=== PATIENT | female | born 1980 | race Caucasian/White ===

== ENCOUNTER → 2020-03-14 12:52 | Outpatient (CLI) | payer OTHER, SELFPAY ==
[2020-03-14 14:34] LABS: Coronavirus 19 IgG Antibody Negative (Negative); Coronavirus 19 IgM Antibody Negative (Negative)
== END ==
PROVIDERS: Visit Provider Internal Medicine Gastroenterology
DX: Z01.812 Encounter for preprocedural laboratory examination (principal); Z20.822 Contact with and (suspected) exposure to COVID-19; Z12.11 Encounter for screening for malignant neoplasm of colon
CPT/HCPCS: 36415; 86328

== ENCOUNTER 2020-03-15 07:07 | Day surgery (SDC) | payer OTHER, SELFPAY ==
[2020-03-14 09:11] VITALS: BMI 37.1
[2020-03-15] VITALS (7 sets, daily range): BP systolic 108–134; BP diastolic 64–88; PULSE 80–110; RESP 16–20; TEMP 36.6–37.2; O2SAT 94–99
[2020-03-15 08:31] LABS: HCG Qualitative, Serum Negative (Negative)
--- NOTE | 2020-03-15 08:43 | P.PCN_ITS ---
[facility] Procedure Note Procedure Note:: Colonoscopy Procedure Report: Colonoscopy with cold snare polypectomy Endoscopist: Jose A Veronica II, MD Referring physician: None Date of Procedure: March 15, 2020 Equipment: Olympus 180 variable stiffness pediatric colonoscope Sedation: MAC sedation Indication: Mrs. Rudd is a 39-year-old female with a change in bowel habits with increased bowel frequency and a clear serous discharge in her underpants and has to change her underwear several times a day. The patient reports no bowel urgency or fecal incontinence. She does have urinary frequency. She does have chronic lower back pain with 2 lower back surgeries and a spinal stimulator. The patient does report some bloating. She notes occasional spotting of blood and some mucus with her bowel movements. She has had a lot of stress and has gained weight. She was placed on Rexulti which made her gain more weight and exacerbated her GERD. She has had tachycardia. She does report some straining with bowel movements about once a week. She reports no family history of colon cancer. Procedure: Prior to the procedure, a history and physical exam was performed, and patient's medications and allergies were reviewed. The risks, benefits and alternatives of the sedation and procedure were discussed with the patient. All questions were answered and informed consent was obtained. The patient was brought to the procedure room. Patient identification and proposed procedure were verified by the physician and the nurse. The patient was placed in a left lateral decubitus position and the scope was passed under direct vision. Throughout the procedure, the patient's blood pressure, pulse, and oxygen saturations were monitored continuously. The colonoscopy was accomplished without difficulty. The patient tolerated the procedure well. Findings: On digital rectal examination there was normal rectal tone. There were no external hemorrhoids. The colonoscope was introduced through the anal canal to the rectum and advanced to the cecum. The ileocecal valve and appendiceal orifice were identified. The scope was advanced a short distance into the ileum which appeared grossly normal. The scope was then withdrawn into the colon. The cecum, ascending and transverse colon were grossly normal. There were 2 diminutive polyps (descending x1 (2 to 3 mm) and sigmoid x1 (3 to 4 mm)) which were both removed via cold snare polypectomy. The rectum was normal. There were no other mucosal abnormalities identified. Upon retroflexion within the rectum there were grade 1-2 internal hemorrhoids.The preparation was excellent throughout with [place] Preparation Score of 9. The cecal time was 12 minutes. Impression: 1. Diminutive colonic polyps x2 2. Grade 1-2 internal hemorrhoids Plan: I will follow up the polyp histology and recommend repeat surveillance colonoscopy in 5 years if either of the polyps are adenomatous. 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 Both the bladder and rectum are innervated by the sacral nerves and are responsible for awareness when the bladder and bowel are full as well as bowel and bladder control. I do feel that this is responsible for her leakage. I am going to recommend bulk fiber. I would like for her to meet with a urologist and also make sure the nerve stimulation device (? InterStim) is functioning.
--- NOTE | 2020-03-15 10:51 | HMH.ANESCL ---
[facility] Anesthesia Checklist - Patient Identification Patient Identification: Arm Band - Structural Data Admitted From: Home Planned Operative Procedure/s: colon Consent for Planned Operative Procedure(s) Verified: Yes Verified Documents: Surgical Consent - Anesthesia Plan Anesthesia Risk discussed: Yes Anesthesia Plan: Verified ASA Class: II Anesthesia Type: General [facility] History Medical History: Reports:: Palpitations Denies:: Cancer, Diabetes Mellitus Type 1, Diabetes Mellitus Type 2, Internal Pacemaker, MRSA, Seizures *Have you ever received a pneumonia vaccine?: No *Have you received a flu vaccine this season?: Yes Anesthesia experience/problems:: none Other Surgeries: No: Pacemaker Amputation: No Fractures: No - *Social History Last grade of school completed: Some college Smoking Status: Never smoker Alcohol Intake: current Alcohol Intake Frequency:: a few times a week Substance Use Type: denies use *Occupational Status:: employed Housing: house Household Members: spouse *Travel in the last 8 weeks: None Family Hx:: Cancer
== END 2020-03-15 09:55 | disposition home or self-care (01) ==
LOC: OUTP 07:12
PROVIDERS: Visit Provider Internal Medicine Gastroenterology
PROC: 0DJD8ZZ Inspection of Lower Intestinal Tract, Via Natural or Artificial Opening Endoscopic (ICD-10-PCS; CPT 45378; principal; 2020-03-15 08:30)
DX: K63.5 Polyp of colon (principal); K64.0 First degree hemorrhoids; R00.0 Tachycardia, unspecified; K21.9 Gastro-esophageal reflux disease without esophagitis; F41.9 Anxiety disorder, unspecified; Z79.899 Other long term (current) drug therapy
CPT/HCPCS: 45385; 84703